=== PATIENT | male | born 1960 | race Caucasian/White ===

== ENCOUNTER → 2018-08-15 | Outpatient (CLI) | payer OTHER ==
[~2018-08-15] MED LIST: IOPAMIDOL (ISOVUE 370) 100 ML BTL IV ONE
== END ==
LOC: FIMAGING 07:48
PROVIDERS: ATTEND Otolaryngology
DX: R22.0 Localized swelling, mass and lump, head (principal)
CPT/HCPCS: Q9967

== ENCOUNTER 2018-08-26 07:40 | Day surgery (SDC) | payer OTHER ==
[2018-08-26] MEDS ORDERED: LR 1,000 ML IV ONE (08:03)
[2018-08-26] MEDS ORDERED: LIDO/EPI 1% **Not for Epidural 20 ML MDV ONE (08:06)
[2018-08-26] MEDS ORDERED: MIDAZOLAM 2 MG/2 ML VIAL IVP ONE (09:54)
--- NOTE | 2018-08-26 09:54 | PDANEPAE ---
ANE History of Present Illness Mass right jaw area ANE Past Medical History - Cardiovascular History Hx Hypertension: No Hx Arrhythmias: No Hx Chest Pain: No Hx Coronary Artery / Peripheral Vascular Disease: No Hx CHF / Valvular Disease: No Hx Palpitations: No Cardiovascular History Comment: rbbb - Pulmonary History Hx COPD: No Hx Asthma/Reactive Airway Disease: No Hx Recent Upper Respiratory Infection: No Hx Oxygen in Use at Home: No Hx Sleep Apnea: Yes Sleep Apnea Screening Result - Last Documented: Negative - Neurologic History Hx Cerebrovascular Accident: No Hx Seizures: No Hx Dementia: No Neurologic History Comment: hx of cervical spine surgery - Endocrine History Hx Diabetes: No - Renal History Hx Renal Disorders: No - Liver History Hx Hepatic Disorders: No - Neurological & Psychiatric Hx Hx Neurological and Psychiatric Disorders: No - Cancer History Hx Cancer: No - Congenital Disorder History Hx Congenital Disorders: No - GI History Hx Gastrointestinal Disorders: No - Other Health History Other Health History: chronic pain pt - Chronic Pain History Chronic Pain: Yes (whole back and neck area) - Surgical History Prior Surgeries: c3-6 decompression surgery 2017. t12 spinal fusion 2005. hiatal hernia repair. trapped ulnar nerve repair. vein surgery on leg ANE Review of Systems Review of Systems: - Exercise capacity METS (RN): 4 METS ANE Patient History - Allergies Allergies/Adverse Reactions: No Known Allergies Allergy (Verified 08/22/18 17:04) - Home Medications Home medications: home medication list seen and reviewed Home Medications: Simvastatin [Zocor] HS 02/13/12 [Last Taken 08/26/18 05:30] oxyCODONE CR [Oxycontin] QID PRN 02/13/12 [Last Taken 08/26/18 05:30] Ibuprofen 08/22/18 [Last Taken 08/22/18] Oxymorphone HCl 08/22/18 [Last Taken 08/26/18 07:30] tiZANidine HCL 08/22/18 [Last Taken 3 Days Ago ~08/23/18] - NPO status NPO Since - Liquids (Date): 08/25/18 NPO Since - Liquids (Time): 17:30 NPO Since - Solids (Date): 08/25/18 NPO Since - Solids (Time): 20:30 - Anes Hx Anes Hx: no prior problems (Required extra pain meds) - Smoking Hx Smoking Status: Never smoked - Family Anes Hx Family Hx Anesthesia Complications: none ANE Labs/Vital Signs - Vital Signs Blood Pressure: 132/86 Heart Rate: 67 Respiratory Rate: 12 O2 Sat (%): 94 Height: 190.5 cm Weight: 122.47 kg ANE Physical Exam - Airway Neck exam: decreased ROM (Large neck) Mallampati Score: Class 3 Mouth exam: normal dental/mouth exam (Multiple chipped incisors.) - Pulmonary Pulmonary: no respiratory distress - Cardiovascular Cardiovascular: regular rate and rhythym - ASA Status ASA Status: II ANE Anesthesia Plan Anesthesia Plan: general endotracheal anesthesia
[2018-08-26] MEDS ORDERED: ROCURONIUM 50 MG/5 ML VIAL ONE (10:28)
[2018-08-26] MEDS ORDERED: LIDOCAINE 2% 5 ML SDV ONE (10:29)
[2018-08-26] MEDS ORDERED: fentaNYL 100 MCG/2 ML INJ ONE ×3 (10:29→12:20)
[2018-08-26] MEDS ORDERED: PROPOFOL 200 MG/20 ML VIAL ONE ×2 (10:30→11:31)
[2018-08-26] MEDS ORDERED: ceFAZolin 2 GM/DEXTROSE 100 ML IV ONE (10:43)
--- NOTE | 2018-08-26 10:43 | PDHPUP ---
History & Physical Update H&P update statement: This history and physical update is based on an assessment of the patient which was completed after admission or registration (within 24 hours), but prior to the surgery/procedure. H&P update: H&P reviewed & patient examined, no change in patient's condition since H&P completed (scheduled for R lipoma excision, cheek)
[2018-08-26] MEDS ORDERED: NALOXONE HCL 0.4 MG/ML INJ IVP PRN ×2 (11:42→13:21)
[2018-08-26] MEDS ORDERED: ONDANSETRON 4 MG/2 ML VIAL IVP PRN (11:42)
[2018-08-26] MEDS ORDERED: ONDANSETRON 4 MG/2 ML VIAL ONE (11:44)
[2018-08-26] MEDS ORDERED: DEXAMETHASONE 4 MG/ML VIAL ONE (11:44)
[2018-08-26] MEDS ORDERED: BACITRACIN ZINC 0.5 OZ OINTTUBE TP ONE (11:45)
[2018-08-26] MEDS ORDERED: SUGAMMADEX SODIUM 200 MG/2 ML VIAL IVP ONE (11:52)
--- NOTE | 2018-08-26 12:01 | POSTOPPROG ---
Post Op Note Date of Operation: 08/26/18 Surgeon: Nina Galvan Anesthesiologist: Allen Anesthesia: GET(General Endotracheal) Pre-op Diagnosis: R cheek lipoma Post-op Diagnosis: R cheek lipoma Procedure: R cheek lipoma excision,NIMS Findings: Subfascial lipoma 3 cm length FN intact Inf/Abcess present in the surg proc area at time of surgery?: No EBL: Minimal Complications: none
--- NOTE | 2018-08-26 12:10 | POSTANESTH ---
Post Anesthetic Evaluation Cardiovascular Status: Similar to Pre-Op Cond Respiratory Status: Similar to Pre-op Cond. Level of Consciousness/Mental Status: Alert and Oriented Pain Control: Adequate, Prn Tx Ordered Nausea/Vomiting Control: Adequate, Prn Tx Ordered Complications Possibly Related to Anesthesia: None Noted
[2018-08-26] MEDS: fentaNYL 100 MCG/2 ML INJ IVP PRN ×2 (12:23→12:28)
[2018-08-26] MEDS ORDERED: HYDROmorphONE/DILAUDID 2 MG/ML INJ ONE (12:37)
[2018-08-26] MEDS: HYDROmorphONE/DILAUDID 2 MG/ML INJ IVP PRN ×2 (12:38→12:50)
[2018-08-26] MEDS ORDERED: oxyCODONE IR 5 MG TAB PO PRN (13:21)
[2018-08-26 13:56] VITALS: BP 136/97
--- NOTE | 2018-09-08 22:25 | GOP ---
[f rep st] OPERATIVE REPORT DATE OF OPERATION: 08/26/2018 SURGEON: Nina Galvan MD ANESTHESIA: General. PREOPERATIVE DIAGNOSIS: Right cheek mass. POSTOPERATIVE DIAGNOSIS: Right cheek mass. PROCEDURE PERFORMED: 1. Excisional biopsy of right subfascial cheek mass. 2. Facial nerve monitoring using the [employer] system. FINDINGS: Patient was found to have a subfascial lipoma that was about 2 x 3 cm. This was just beneath the parotidomasseteric fascia. The facial nerve monitor was utilized to be able to keep this under surveillance, and facial nerve function was normal postoperatively. ESTIMATED BLOOD LOSS: Minimal. COMPLICATIONS: None. INDICATIONS: The patient is a very pleasant man who has a history of a right cheek lump around the angle of the jaw. This has been there for multiple years , although in the past year he has noticed that it has gotten larger. Since it has gotten bigger, he was desirous to get this removed. An ultrasound was done which showed a likely lipoma. Due to the area of this lesion a CT scan was done to evaluate if there is any involvement of the parotid tissue or deep to the subfascial region, which there was not. It was felt he would benefit from the above procedures. DESCRIPTION OF PROCEDURE: Patient was first seen in the preoperative area where informed consent was obtained. He was then brought back to the operating room. Anesthesia sedated and intubated him. The bed was turned 90 degrees, and a small shoulder roll was placed with his head tilted to the left. The facial nerve monitor was placed and then registered and confirmed to be working accurately, which it was. At this point a universal time-out protocol was performed. I had previously marked out a 4 cm incision about 2 fingerbreadths below the angle of the mandible in a skin crease. This incision was made through the skin and subcutaneous tissues with electrocautery on a low setting. I then divided the platysma muscle and then elevated a subplatysmal flap inferiorly and superiorly. As I was elevating subplatysmal flap superiorly I was able to isolate what looked like the capsule of the lipoma. This was gently grasped with a Yoav and then blunt dissection using a tonsil clamp was gently dissected around the lipoma, taking care to stay lateral to the parotid tissue. Of note, at the very inferior-most portion I did somewhat abut the parotid tissue, but the fascial layer was continuously dissected off the underlying lipoma and then after it was completely released the lipoma was removed as a whole and sent off for permanent pathology. The underlying tissues were intact. The marginal and mandibular branches of the facial nerve were not visualized, although they were noted to be able to be stimulated pre and postoperatively. At this point, the wound was irrigated out copiously with normal saline and suctioned clear. The fascia and platysma were closed using a 3-0 Vicryl in interrupted fashion and then subcutaneous tissues were closed with the same type of suture. The skin was then closed with a 5-0 nylon in a running subcuticular fashion. The wound was cleaned and then a small noninvasive bacitracin was placed over the incision and then a pressure dressing was placed using some floss over the incision and then a Helen wrap around the head. At this point, the patient was turned back over to Anesthesia , where he was awakened and extubated and taken to PACU in stable condition. There were no complications. He tolerated the procedure well. /[id number]/MODL MTDD
== END 2018-08-26 14:20 | disposition home or self-care (01) ==
LOC: FSGY 07:40
PROVIDERS: ATTEND Otolaryngology
DX: D17.0 Benign lipomatous neoplasm of skin and subcutaneous tissue of head, face and neck (principal); E78.5 Hyperlipidemia, unspecified; R73.03 Prediabetes; R03.0 Elevated blood-pressure reading, without diagnosis of hypertension; I45.10 Unspecified right bundle-branch block; Z98.1 Arthrodesis status
CPT/HCPCS: J1100; J1170; J2250; J2405; J2704; J3010